=== PATIENT | female | born 1955 | race Caucasian/White ===

== ENCOUNTER 2017-09-17 09:15 | Emergency (ER) | payer OTHER ==
[2017-09-17 10:23] LABS: ADD MAN DIFF? NO
[2017-09-17 10:26] LABS: ABNORMAL IP MESSAGE 1; BASOPHILS % 0.7 % (0.0-2.0); EOSINOPHILS % 1.4 % (0.0-7.0); HEMATOCRIT 27.3 % (37.0-47.0); LYMPHOCYTES # 0.4 10^3/ul (0.8-2.9); LYMPHOCYTES % 13.6 % (15.0-51.0); MEAN CORPUSCULAR HEMOGLOBIN 26.8 pg (29.0-33.0); MEAN CORPUSCULAR HGB CONC 29.3 g/dl (32.0-37.0); MEAN CORPUSCULAR VOLUME 91.3 fl (82.0-101.0); MEAN PLATELET VOLUME 11.5 fl (7.4-10.4); MONOCYTE # 0.2 10^3/ul (0.3-0.9); MONOCYTES % 8.4 % (0.0-11.0); NEUTROPHIL # 2.2 10^3/ul (1.6-7.5); NEUTROPHILS % 75.6 % (39.0-77.0); PLATELET COUNT 74 10^3/UL (140-415); RED BLOOD COUNT 2.99 10^6/ul (4.20-5.40); RED CELL DISTRIBUTION WIDTH 16.6 % (11.5-14.5)
[2017-09-17 10:26] LABS: WHITE BLOOD COUNT 2.9 10^3/ul (4.8-10.8)
[2017-09-17 10:28] LABS: POSITIVE DIFF @See below
[2017-09-17 10:43] LABS: ALANINE AMINOTRANSFERASE 42 IU/L (13-69); ALBUMIN 3.1 g/dl (3.3-4.9); ALBUMIN/GLOBULIN RATIO 0.93; ALKALINE PHOSPHATASE 131 IU/L (42-121); ANION GAP 13 (8-16); ASPARTATE AMINO TRANSFERASE 53 IU/L (15-46); BILIRUBIN,INDIRECT 1.1 mg/dl (0-1.1); BILIRUBIN,TOTAL 1.1 mg/dl (0.2-1.3); BLOOD UREA NITROGEN 9 mg/dl (7-20); CALCIUM 8.2 mg/dl (8.4-10.2); CARBON DIOXIDE 21 mmol/L (21-31); CHLORIDE 114 mmol/L (97-110); CREATININE 0.51 mg/dl (0.44-1.00); GLUCOSE 94 mg/dl (70-220); POTASSIUM 4.1 mmol/L (3.5-5.1); SODIUM 144 mmol/L (135-144); TOTAL PROTEIN 6.4 g/dl (6.1-8.1)
[2017-09-17 10:51] LABS: B-TYPE NATRIURETIC PEPTIDE 104 PG/ML (0-125)
[2017-09-17 10:53] LABS: ADD UMIC YES; UR ASCORBIC ACID 40 mg/dL (NEGATIVE); UR BILIRUBIN (Dip) NEGATIVE (NEGATIVE); UR BLOOD (Dip) 3+ mg/dL (NEGATIVE); UR BUDDING YEAST FEW /HPF (NONE SEEN); UR CLARITY CLOUDY (CLEAR); UR COLOR AMBER (YELLOW); UR GLUCOSE (Dip) NEGATIVE (NEGATIVE); UR KETONES (Dip) TRACE mg/dL (NEGATIVE); UR LEUKOCYTE ESTERASE (Dip) 3+ Leu/ul (NEGATIVE); UR MUCUS MODERATE /HPF (NONE SEEN); UR NITRITE (Dip) NEGATIVE (NEGATIVE); UR NONSQUAMOUS EPITHELIAL CELL 2 /HPF (NONE SEEN); UR RBC > 182 /HPF (0-5); UR SPECIFIC GRAVITY (Dip) 1.021 (1.003-1.030); UR SQUAMOUS EPITHELIAL CELL FEW /HPF (FEW); UR TOTAL PROTEIN (Dip) 2+ mg/dl (NEGATIVE); UR UROBILINOGEN (Dip) NEGATIVE (NEGATIVE); UR WBC > 182 /HPF (0-5)
[2017-09-17] MEDS: FUROSEMIDE 40 MG INJ IV (12:05)
== END 2017-09-17 13:37 | disposition home or self-care (01) ==
LOC: E/R 09:15
DX: N39.0 Urinary tract infection, site not specified (principal); R31.9 Hematuria, unspecified; I10 Essential (primary) hypertension; E11.9 Type 2 diabetes mellitus without complications; C22.9 Malignant neoplasm of liver, not specified as primary or secondary; R60.0 Localized edema; Z79.84 Long term (current) use of oral hypoglycemic drugs
CPT/HCPCS: 36415; 71045; 80053; 81001; 83880; 85025; 96374; 99284-25

== ENCOUNTER 2017-10-05 10:20 | Inpatient (IN) | payer OTHER ==
[2017-10-05] MEDS: SOD CHLORIDE 0.9% 500 ML IV (11:18)
[2017-10-05 11:22] LABS: ADD MAN DIFF? NO
[2017-10-05 11:31] LABS: ABNORMAL IP MESSAGE 1; ADD UMIC YES; BASOPHILS % 0.7 % (0.0-2.0); EOSINOPHILS % 0.3 % (0.0-7.0); HEMATOCRIT 32.7 % (37.0-47.0); HEMOGLOBIN 9.9 g/dl (12.0-16.0); LYMPHOCYTES # 0.6 10^3/ul (0.8-2.9); LYMPHOCYTES % 19.3 % (15.0-51.0); MEAN CORPUSCULAR HEMOGLOBIN 26.8 pg (29.0-33.0); MEAN CORPUSCULAR HGB CONC 30.3 g/dl (32.0-37.0); MEAN CORPUSCULAR VOLUME 88.4 fl (82.0-101.0); MEAN PLATELET VOLUME 10.6 fl (7.4-10.4); MONOCYTE # 0.3 10^3/ul (0.3-0.9); MONOCYTES % 9.2 % (0.0-11.0); NEUTROPHIL # 2.2 10^3/ul (1.6-7.5); NEUTROPHILS % 70.5 % (39.0-77.0); PLATELET COUNT 91 10^3/UL (140-415); RED CELL DISTRIBUTION WIDTH 17.3 % (11.5-14.5); UR ASCORBIC ACID 40 mg/dL (NEGATIVE); UR BILIRUBIN (Dip) NEGATIVE (NEGATIVE); UR BLOOD (Dip) NEGATIVE (NEGATIVE); UR CLARITY CLEAR (CLEAR); UR COLOR YELLOW (YELLOW); UR GLUCOSE (Dip) NEGATIVE (NEGATIVE); UR KETONES (Dip) NEGATIVE (NEGATIVE); UR LEUKOCYTE ESTERASE (Dip) 1+ Leu/ul (NEGATIVE); UR NITRITE (Dip) NEGATIVE (NEGATIVE); UR NONSQUAMOUS EPITHELIAL CELL 3 /HPF (NONE SEEN); UR RBC 2 /HPF (0-5); UR SPECIFIC GRAVITY (Dip) 1.018 (1.003-1.030); UR SQUAMOUS EPITHELIAL CELL FEW /HPF (FEW); UR TOTAL PROTEIN (Dip) NEGATIVE (NEGATIVE); UR UROBILINOGEN (Dip) 1+ mg/dL (NEGATIVE); UR WBC 38 /HPF (0-5)
[2017-10-05 11:31] LABS: WHITE BLOOD COUNT 3.1 10^3/ul (4.8-10.8)
[2017-10-05 11:32] LABS: POSITIVE DIFF @See below
[2017-10-05 11:48] LABS: AMMONIA 70 umol/l (9-30)
[2017-10-05 11:51] LABS: INR 1.27; PROTIME 16.1 Sec (11.9-14.9); PT RATIO 1.3
[2017-10-05 11:52] LABS: PARTIAL THROMBOPLASTIN TIME 35.4 Sec (25.0-35.0)
[2017-10-05 11:54] LABS: ALANINE AMINOTRANSFERASE 33 IU/L (13-69); ALBUMIN 3.7 g/dl (3.3-4.9); ALBUMIN/GLOBULIN RATIO 1.02; ALKALINE PHOSPHATASE 137 IU/L (42-121); ANION GAP 12 (8-16); ASPARTATE AMINO TRANSFERASE 47 IU/L (15-46); BILIRUBIN,INDIRECT 1.1 mg/dl (0-1.1); BILIRUBIN,TOTAL 1.1 mg/dl (0.2-1.3); BLOOD UREA NITROGEN 12 mg/dl (7-20); CALCIUM 8.8 mg/dl (8.4-10.2); CARBON DIOXIDE 19 mmol/L (21-31); CHLORIDE 114 mmol/L (97-110); ETHANOL < 10.0 mg/dl; GLUCOSE 124 mg/dl (70-220); POTASSIUM 4.1 mmol/L (3.5-5.1); SODIUM 141 mmol/L (135-144); TOTAL PROTEIN 7.3 g/dl (6.1-8.1)
[2017-10-05 12:02] LABS: TROPONIN-I < 0.010 ng/ml (0.000-0.120)
[2017-10-05 12:23] LABS: AMPHETAMINE/METHAMPHETAMINE Negative (NEGATIVE); BARBITURATES Negative (NEGATIVE); BENZODIAZEPINES Negative (NEGATIVE); CANNABINOIDS Negative (NEGATIVE); COCAINE Negative (NEGATIVE); OPIATES Negative (NEGATIVE)
[2017-10-05] MEDS: CEFTRIAXONE 1 GM/50 ML (PMX) 50 ML IVPB (12:55)
[2017-10-05] MEDS: LACTULOSE 30ML CUP PO ×2 (12:55→18:00)
[2017-10-05] MEDS: DIPHENHYDRAMINE 50 MG INJ IV (13:44)
[2017-10-05] MEDS ORDERED: BISACODYL 10 MG SUPP PR (15:30)
[2017-10-05] MEDS ORDERED: NACL 0.9% 3 ML SYG IV (15:30)
[2017-10-05] MEDS ORDERED: MAGNESIUM HYDROXIDE 30ML CUP PO (15:30)
[2017-10-05] MEDS: CIPROFLOXACIN 200 MG/D5W IVPB 100 ML IVPB (17:49)
[2017-10-05] MEDS: RIFAXIMIN 550 MG TAB PO (20:09)
[2017-10-05] MEDS: GABAPENTIN 300 MG CAP PO (20:09)
[2017-10-05] MEDS: FERROUS SULFATE (EC) 325 MG TAB PO (20:09)
[2017-10-05] MEDS: morphine 2 MG INJ IV (22:44)
[2017-10-06] MEDS: LACTULOSE 30ML CUP PO ×5 (00:02→23:45)
[2017-10-06] MEDS: CIPROFLOXACIN 200 MG/D5W IVPB 100 ML IVPB ×2 (04:11→16:21)
[2017-10-06] MEDS: PANTOPRAZOLE (EC) 40 MG TAB PO (05:13)
[2017-10-06] MEDS: PANTOPRAZOLE 40 MG INJ IV (05:13)
[2017-10-06 06:20] LABS: ADD MAN DIFF? NO
[2017-10-06 06:28] LABS: WHITE BLOOD COUNT 2.7 10^3/ul (4.8-10.8)
[2017-10-06 06:28] LABS: ABNORMAL IP MESSAGE 1; BASOPHILS % 0.8 % (0.0-2.0); EOSINOPHILS % 1.1 % (0.0-7.0); HEMATOCRIT 29.5 % (37.0-47.0); HEMOGLOBIN 8.8 g/dl (12.0-16.0); LYMPHOCYTES # 0.6 10^3/ul (0.8-2.9); LYMPHOCYTES % 23.7 % (15.0-51.0); MEAN CORPUSCULAR HEMOGLOBIN 26.7 pg (29.0-33.0); MEAN CORPUSCULAR HGB CONC 29.8 g/dl (32.0-37.0); MEAN CORPUSCULAR VOLUME 89.4 fl (82.0-101.0); MEAN PLATELET VOLUME 11.2 fl (7.4-10.4); MONOCYTE # 0.4 10^3/ul (0.3-0.9); MONOCYTES % 15.4 % (0.0-11.0); NEUTROPHIL # 1.6 10^3/ul (1.6-7.5); NEUTROPHILS % 58.6 % (39.0-77.0); PLATELET COUNT 90 10^3/UL (140-415); RED CELL DISTRIBUTION WIDTH 17.5 % (11.5-14.5)
[2017-10-06 06:39] LABS: POSITIVE DIFF @See below
[2017-10-06 06:54] LABS: HEMOGLOBIN A1C 4.8 % (0-5.9)
[2017-10-06 06:57] LABS: ALANINE AMINOTRANSFERASE 33 IU/L (13-69); ALBUMIN 2.9 g/dl (3.3-4.9); ALBUMIN/GLOBULIN RATIO 0.96; ALKALINE PHOSPHATASE 98 IU/L (42-121); ANION GAP 10 (8-16); ASPARTATE AMINO TRANSFERASE 39 IU/L (15-46); BILIRUBIN,INDIRECT 1.1 mg/dl (0-1.1); BILIRUBIN,TOTAL 1.1 mg/dl (0.2-1.3); BLOOD UREA NITROGEN 11 mg/dl (7-20); CALCIUM 8.3 mg/dl (8.4-10.2); CARBON DIOXIDE 21 mmol/L (21-31); CHLORIDE 112 mmol/L (97-110); CHOLESTEROL 118 mg/dl (100-200); CREATININE 0.55 mg/dl (0.44-1.00); GLUCOSE 106 mg/dl (70-220); HDL CHOLESTEROL 39 mg/dl (35-98); LDL CHOLESTEROL,CALCULATED 69 mg/dl; MAGNESIUM 1.7 mg/dl (1.7-2.5); PHOSPHORUS 4.1 mg/dl (2.5-4.9); POTASSIUM 3.8 mmol/L (3.5-5.1); SODIUM 139 mmol/L (135-144); TOTAL PROTEIN 5.9 g/dl (6.1-8.1); TRIGLYCERIDES 51 mg/dl (0-149)
[2017-10-06 07:12] LABS: FREE THYROXINE INDEX (Calc) 2.67 ug/ml (0.65-3.89); T3 UPTAKE 37.1 % (23.5-40.5); T4 (THYROXINE) 7.2 ug/dl (5.5-11.0)
[2017-10-06] MEDS: GABAPENTIN 300 MG CAP PO ×3 (08:56→20:44)
[2017-10-06] MEDS: FUROSEMIDE 20 MG TAB PO (08:57)
[2017-10-06] MEDS: RIFAXIMIN 550 MG TAB PO ×2 (08:57→20:44)
[2017-10-06] MEDS: BENAZEPRIL 10 MG TAB PO (08:57)
[2017-10-06] MEDS: FERROUS SULFATE (EC) 325 MG TAB PO ×3 (08:57→20:44)
[2017-10-06 11:42] LABS: AMMONIA 57 umol/l (9-30)
[2017-10-06] MEDS: DOCUSATE SODIUM 100 MG CAP PO (17:17)
[2017-10-07] MEDS: CIPROFLOXACIN 200 MG/D5W IVPB 100 ML IVPB ×2 (04:08→15:27)
[2017-10-07] MEDS: PANTOPRAZOLE (EC) 40 MG TAB PO (05:49)
[2017-10-07] MEDS: LACTULOSE 30ML CUP PO ×4 (05:49→22:51)
[2017-10-07] MEDS: BENAZEPRIL 10 MG TAB PO ×2 (09:00→12:36)
[2017-10-07] MEDS: GABAPENTIN 300 MG CAP PO ×3 (09:05→20:36)
[2017-10-07] MEDS: FERROUS SULFATE (EC) 325 MG TAB PO ×3 (09:05→20:36)
[2017-10-07] MEDS: RIFAXIMIN 550 MG TAB PO ×2 (09:05→20:36)
[2017-10-07] MEDS: FUROSEMIDE 20 MG TAB PO (09:05)
[2017-10-07] MEDS: MAGNESIUM OXIDE 400 MG TAB PO ×2 (15:27→20:36)
[2017-10-07] MEDS: ZOLPIDEM 5 MG TAB PO (22:51)
[2017-10-08] MEDS: PANTOPRAZOLE (EC) 40 MG TAB PO (06:07)
[2017-10-08] MEDS: LACTULOSE 30ML CUP PO ×3 (06:07→17:06)
[2017-10-08] MEDS: CIPROFLOXACIN 250 MG TAB PO ×2 (06:07→17:06)
[2017-10-08 08:09] LABS: AMMONIA 118 umol/l (9-30)
[2017-10-08 08:11] LABS: ANION GAP 9 (8-16); BLOOD UREA NITROGEN 10 mg/dl (7-20); CALCIUM 8.2 mg/dl (8.4-10.2); CARBON DIOXIDE 23 mmol/L (21-31); CHLORIDE 108 mmol/L (97-110); GLUCOSE 150 mg/dl (70-220); POTASSIUM 3.8 mmol/L (3.5-5.1); SODIUM 136 mmol/L (135-144)
[2017-10-08] MEDS: RIFAXIMIN 550 MG TAB PO ×2 (08:31→19:59)
[2017-10-08] MEDS: GABAPENTIN 300 MG CAP PO ×3 (08:31→19:59)
[2017-10-08] MEDS: FUROSEMIDE 20 MG TAB PO (08:31)
[2017-10-08] MEDS: MAGNESIUM OXIDE 400 MG TAB PO ×2 (08:31→19:59)
[2017-10-08] MEDS: FERROUS SULFATE (EC) 325 MG TAB PO ×3 (08:31→19:59)
[2017-10-08] MEDS: BENAZEPRIL 10 MG TAB PO (08:32)
[2017-10-08] MEDS: morphine LIQ (10 MG/5 ML) CUP PO (19:59)
[2017-10-09] MEDS: LACTULOSE 30ML CUP PO ×5 (00:09→23:47)
[2017-10-09] MEDS: CIPROFLOXACIN 250 MG TAB PO ×2 (06:25→17:19)
[2017-10-09] MEDS: PANTOPRAZOLE (EC) 40 MG TAB PO (06:25)
[2017-10-09 08:04] LABS: ALANINE AMINOTRANSFERASE 38 IU/L (13-69); ALBUMIN 2.9 g/dl (3.3-4.9); ALBUMIN/GLOBULIN RATIO 0.87; ALKALINE PHOSPHATASE 110 IU/L (42-121); ANION GAP 9 (8-16); ASPARTATE AMINO TRANSFERASE 55 IU/L (15-46); CALCIUM 8.2 mg/dl (8.4-10.2); CARBON DIOXIDE 23 mmol/L (21-31); CHLORIDE 106 mmol/L (97-110); GLUCOSE 132 mg/dl (70-220); POTASSIUM 4.2 mmol/L (3.5-5.1); SODIUM 134 mmol/L (135-144); TOTAL PROTEIN 6.2 g/dl (6.1-8.1)
[2017-10-09 08:08] LABS: AMMONIA 72 umol/l (9-30)
[2017-10-09 08:09] LABS: BLOOD UREA NITROGEN 8 mg/dl (7-20)
[2017-10-09] MEDS: RIFAXIMIN 550 MG TAB PO ×2 (08:37→20:35)
[2017-10-09] MEDS: FERROUS SULFATE (EC) 325 MG TAB PO ×3 (08:37→20:35)
[2017-10-09] MEDS: FUROSEMIDE 20 MG TAB PO (08:38)
[2017-10-09] MEDS: MAGNESIUM OXIDE 400 MG TAB PO ×2 (08:38→20:35)
[2017-10-09] MEDS: GABAPENTIN 300 MG CAP PO ×3 (08:38→20:35)
[2017-10-09] MEDS: BENAZEPRIL 10 MG TAB PO (08:38)
[2017-10-09 10:12] LABS: ADD MAN DIFF? NO
[2017-10-09 10:14] LABS: WHITE BLOOD COUNT 3.3 10^3/ul (4.8-10.8)
[2017-10-09 10:14] LABS: ABNORMAL IP MESSAGE 1; BASOPHILS % 0.6 % (0.0-2.0); EOSINOPHILS # 0.1 10^3/ul (0.0-0.5); EOSINOPHILS % 2.7 % (0.0-7.0); HEMATOCRIT 30.7 % (37.0-47.0); HEMOGLOBIN 9.5 g/dl (12.0-16.0); LYMPHOCYTES # 0.9 10^3/ul (0.8-2.9); LYMPHOCYTES % 27.7 % (15.0-51.0); MEAN CORPUSCULAR HEMOGLOBIN 27.7 pg (29.0-33.0); MEAN CORPUSCULAR HGB CONC 30.9 g/dl (32.0-37.0); MEAN CORPUSCULAR VOLUME 89.5 fl (82.0-101.0); MEAN PLATELET VOLUME 11.9 fl (7.4-10.4); MONOCYTE # 0.5 10^3/ul (0.3-0.9); MONOCYTES % 14.3 % (0.0-11.0); NEUTROPHIL # 1.8 10^3/ul (1.6-7.5); NEUTROPHILS % 54.4 % (39.0-77.0); PLATELET COUNT 99 10^3/UL (140-415); RED BLOOD COUNT 3.43 10^6/ul (4.20-5.40); RED CELL DISTRIBUTION WIDTH 16.7 % (11.5-14.5)
[2017-10-09 10:22] LABS: POSITIVE DIFF @See below
[2017-10-09] MEDS: ONDANSETRON 4 MG INJ IV ×2 (12:56→18:12)
[2017-10-09] MEDS: traMADol 50 MG TAB PO ×2 (12:57→18:13)
[2017-10-10] MEDS: CIPROFLOXACIN 250 MG TAB PO ×2 (05:59→17:58)
[2017-10-10] MEDS: LACTULOSE 30ML CUP PO ×4 (05:59→23:11)
[2017-10-10] MEDS: PANTOPRAZOLE (EC) 40 MG TAB PO (05:59)
[2017-10-10] MEDS: BENAZEPRIL 10 MG TAB PO (09:00)
[2017-10-10] MEDS: MAGNESIUM OXIDE 400 MG TAB PO ×2 (09:05→20:13)
[2017-10-10] MEDS: RIFAXIMIN 550 MG TAB PO ×2 (09:06→20:13)
[2017-10-10] MEDS: GABAPENTIN 300 MG CAP PO ×3 (09:06→20:14)
[2017-10-10] MEDS: FERROUS SULFATE (EC) 325 MG TAB PO ×3 (09:06→20:13)
[2017-10-10] MEDS: FUROSEMIDE 20 MG TAB PO (09:06)
[2017-10-10 09:09] LABS: ADD MAN DIFF? NO
[2017-10-10 09:16] LABS: ABNORMAL IP MESSAGE 1; BASOPHILS % 0.7 % (0.0-2.0); EOSINOPHILS # 0.1 10^3/ul (0.0-0.5); EOSINOPHILS % 1.6 % (0.0-7.0); HEMATOCRIT 28.6 % (37.0-47.0); HEMOGLOBIN 8.8 g/dl (12.0-16.0); LYMPHOCYTES # 0.7 10^3/ul (0.8-2.9); LYMPHOCYTES % 24.1 % (15.0-51.0); MEAN CORPUSCULAR HEMOGLOBIN 27.2 pg (29.0-33.0); MEAN CORPUSCULAR HGB CONC 30.8 g/dl (32.0-37.0); MEAN CORPUSCULAR VOLUME 88.5 fl (82.0-101.0); MEAN PLATELET VOLUME 11.6 fl (7.4-10.4); MONOCYTE # 0.5 10^3/ul (0.3-0.9); NEUTROPHIL # 1.8 10^3/ul (1.6-7.5); NEUTROPHILS % 57.9 % (39.0-77.0); RED BLOOD COUNT 3.23 10^6/ul (4.20-5.40)
[2017-10-10 09:16] LABS: WHITE BLOOD COUNT 3.1 10^3/ul (4.8-10.8)
[2017-10-10 09:18] LABS: POSITIVE DIFF @See below
[2017-10-10 09:19] LABS: PLATELET COUNT 90 10^3/UL (140-415)
[2017-10-10 09:28] LABS: AMMONIA 107 umol/l (9-30)
[2017-10-10 09:40] LABS: ALANINE AMINOTRANSFERASE 43 IU/L (13-69); ALBUMIN 2.7 g/dl (3.3-4.9); ALBUMIN/GLOBULIN RATIO 0.87; ALKALINE PHOSPHATASE 114 IU/L (42-121); ANION GAP 9 (8-16); ASPARTATE AMINO TRANSFERASE 61 IU/L (15-46); BILIRUBIN,INDIRECT 0.8 mg/dl (0-1.1); BILIRUBIN,TOTAL 0.8 mg/dl (0.2-1.3); BLOOD UREA NITROGEN 11 mg/dl (7-20); CALCIUM 8.1 mg/dl (8.4-10.2); CARBON DIOXIDE 24 mmol/L (21-31); CHLORIDE 106 mmol/L (97-110); CREATININE 0.53 mg/dl (0.44-1.00); GLUCOSE 137 mg/dl (70-220); SODIUM 135 mmol/L (135-144); TOTAL PROTEIN 5.8 g/dl (6.1-8.1)
[2017-10-11] MEDS: PANTOPRAZOLE (EC) 40 MG TAB PO (05:30)
[2017-10-11] MEDS: CIPROFLOXACIN 250 MG TAB PO (05:30)
[2017-10-11] MEDS: LACTULOSE 30ML CUP PO ×4 (05:30→23:41)
[2017-10-11 06:40] LABS: ADD MAN DIFF? NO
[2017-10-11 06:43] LABS: ABNORMAL IP MESSAGE 1; BASOPHILS % 0.7 % (0.0-2.0); EOSINOPHILS # 0.1 10^3/ul (0.0-0.5); EOSINOPHILS % 1.8 % (0.0-7.0); HEMATOCRIT 27.9 % (37.0-47.0); HEMOGLOBIN 8.4 g/dl (12.0-16.0); LYMPHOCYTES # 0.7 10^3/ul (0.8-2.9); LYMPHOCYTES % 27.3 % (15.0-51.0); MEAN CORPUSCULAR HGB CONC 30.1 g/dl (32.0-37.0); MEAN CORPUSCULAR VOLUME 89.7 fl (82.0-101.0); MEAN PLATELET VOLUME 11.5 fl (7.4-10.4); MONOCYTE # 0.4 10^3/ul (0.3-0.9); MONOCYTES % 15.9 % (0.0-11.0); NEUTROPHIL # 1.5 10^3/ul (1.6-7.5); NEUTROPHILS % 53.9 % (39.0-77.0); PLATELET COUNT 80 10^3/UL (140-415); RED BLOOD COUNT 3.11 10^6/ul (4.20-5.40); RED CELL DISTRIBUTION WIDTH 17.5 % (11.5-14.5)
[2017-10-11 06:43] LABS: WHITE BLOOD COUNT 2.7 10^3/ul (4.8-10.8)
[2017-10-11 06:44] LABS: POSITIVE DIFF @See below
[2017-10-11 07:11] LABS: AMMONIA 70 umol/l (9-30)
[2017-10-11 07:17] LABS: ALANINE AMINOTRANSFERASE 42 IU/L (13-69); ALBUMIN 2.7 g/dl (3.3-4.9); ALKALINE PHOSPHATASE 110 IU/L (42-121); ASPARTATE AMINO TRANSFERASE 69 IU/L (15-46); BILIRUBIN,INDIRECT 0.9 mg/dl (0-1.1); BILIRUBIN,TOTAL 0.9 mg/dl (0.2-1.3); BLOOD UREA NITROGEN 8 mg/dl (7-20); CALCIUM 8.1 mg/dl (8.4-10.2); CARBON DIOXIDE 26 mmol/L (21-31); CHLORIDE 106 mmol/L (97-110); CREATININE 0.54 mg/dl (0.44-1.00); GLUCOSE 116 mg/dl (70-220); SODIUM 136 mmol/L (135-144); TOTAL PROTEIN 5.7 g/dl (6.1-8.1)
[2017-10-11 07:20] LABS: ANION GAP 8 (8-16)
[2017-10-11] MEDS: GABAPENTIN 300 MG CAP PO ×3 (08:37→20:58)
[2017-10-11] MEDS: FUROSEMIDE 20 MG TAB PO (08:38)
[2017-10-11] MEDS: BENAZEPRIL 10 MG TAB PO (08:38)
[2017-10-11] MEDS: RIFAXIMIN 550 MG TAB PO ×2 (08:38→20:58)
[2017-10-11] MEDS: FERROUS SULFATE (EC) 325 MG TAB PO ×3 (08:38→20:59)
[2017-10-11] MEDS: MAGNESIUM OXIDE 400 MG TAB PO ×2 (08:38→20:59)
[2017-10-12] MEDS: SOD CHLORIDE 0.9% 250 ML IV (02:10)
[2017-10-12] MEDS: PANTOPRAZOLE (EC) 40 MG TAB PO (05:29)
[2017-10-12] MEDS: LACTULOSE 30ML CUP PO ×3 (05:29→18:28)
[2017-10-12 07:37] LABS: ABNORMAL IP MESSAGE 1; HEMOGLOBIN 8.7 g/dl (12.0-16.0); MEAN CORPUSCULAR HEMOGLOBIN 28.1 pg (29.0-33.0); MEAN CORPUSCULAR HGB CONC 31.1 g/dl (32.0-37.0); MEAN CORPUSCULAR VOLUME 90.3 fl (82.0-101.0); MEAN PLATELET VOLUME 10.7 fl (7.4-10.4); PLATELET COUNT 69 10^3/UL (140-415); RED CELL DISTRIBUTION WIDTH 17.9 % (11.5-14.5)
[2017-10-12 07:37] LABS: WHITE BLOOD COUNT 2.4 10^3/ul (4.8-10.8)
[2017-10-12 07:45] LABS: POSITIVE DIFF @See below
[2017-10-12 07:46] LABS: ADD MAN DIFF? YES
[2017-10-12 07:53] LABS: AMMONIA 61 umol/l (9-30)
[2017-10-12 07:56] LABS: ALANINE AMINOTRANSFERASE 53 IU/L (13-69); ALBUMIN 2.7 g/dl (3.3-4.9); ALBUMIN/GLOBULIN RATIO 0.96; ALKALINE PHOSPHATASE 119 IU/L (42-121); ANION GAP 9 (8-16); ASPARTATE AMINO TRANSFERASE 75 IU/L (15-46); BILIRUBIN,INDIRECT 0.6 mg/dl (0-1.1); BILIRUBIN,TOTAL 0.6 mg/dl (0.2-1.3); BLOOD UREA NITROGEN 9 mg/dl (7-20); CALCIUM 8.3 mg/dl (8.4-10.2); CARBON DIOXIDE 27 mmol/L (21-31); CHLORIDE 106 mmol/L (97-110); GLUCOSE 131 mg/dl (70-220); POTASSIUM 3.7 mmol/L (3.5-5.1); SODIUM 138 mmol/L (135-144); TOTAL PROTEIN 5.5 g/dl (6.1-8.1)
[2017-10-12] MEDS: RIFAXIMIN 550 MG TAB PO (08:08)
[2017-10-12] MEDS: FUROSEMIDE 20 MG TAB PO (08:09)
[2017-10-12] MEDS: MAGNESIUM OXIDE 400 MG TAB PO (08:09)
[2017-10-12] MEDS: FERROUS SULFATE (EC) 325 MG TAB PO ×2 (08:09→12:41)
[2017-10-12] MEDS: GABAPENTIN 300 MG CAP PO ×2 (08:09→12:41)
[2017-10-12] MEDS: BENAZEPRIL 10 MG TAB PO (08:10)
[2017-10-12 08:55] LABS: PHOSPHORUS 3.4 mg/dl (2.5-4.9)
[2017-10-12 09:50] LABS: ANISOCYTOSIS 1+ (0-0); BAND NEUTROPHILS % (M) 3 % (0-4); BASOPHILS % (M) 2 % (0-2); EOSINOPHILS % (M) 3 % (0-7); ERYTHROBLAST% (NRBC) (M) 1 % (0-0); GIANT THROMBO% (M) 5 % (0-0); LYMPHOCYTES #M 0.5 10^3/ul (0.8-2.9); LYMPHOCYTES % (M) 22 % (15-51); MONOCYTE #M 0.2 10^3/ul (0.3-0.9); MONOCYTES % (M) 9 % (0-11); PLATELET ESTIMATE INCREASED; POIKILOCYTOSIS 1+ (0-0); SEG NEUT #M 1.5 10^3/ul (1.6-7.5); SEGMENTED NEUTROPHILS (M) % 61 % (39-77); SMUDGE%M 9 % (0-0)
== END 2017-10-12 19:05 | disposition home or self-care (01) | DRG 435 ==
LOC: 5EC 10-10 13:33 → E/R 10:20 → 5EC 10-10 13:34
DX: C22.0 Liver cell carcinoma (principal); G92 Toxic encephalopathy; N39.0 Urinary tract infection, site not specified; D61.818 Other pancytopenia; E72.20 Disorder of urea cycle metabolism, unspecified; I10 Essential (primary) hypertension; E11.9 Type 2 diabetes mellitus without complications; B19.20 Unspecified viral hepatitis C without hepatic coma
CPT/HCPCS: 36415; 70450; 71045; 80048; 80053; 80061; 80307; 81001; 82140; 83036; 83605; 83735; 84100; 84436; 84443; 84479; 84484; 85025; 85610; 85730; 87040; 87086; 93005; 96361; 96365; 96375; 97116; 97162; 97530; 99291-25

== ENCOUNTER → 2018-04-21 | Outpatient (CLI) | payer OTHER ==
[2018-04-21 13:28] LABS: AADO2 Arterial 2.5 mmHg (7.0-24.0); Allen Test ACCEPTAB; Arterial Base Excess 0.7 mmol/L (-3.0-3); Arterial Blood Gas Oxygen Sat 98.1 mmHG (95.0-98.0); Arterial Fraction of Oxyhgb 96.9 % (93.0-99.0); Arterial HCO3 23.4 mmol/L (22.0-26.0); Arterial MetHb 0.2 % (0.0-1.5); Arterial pCO2 31.3 mmhg (35-45); MODE ROOM AIR; Site Right Radial
== END | disposition home or self-care (01) ==
LOC: PUL 12:50
DX: K74.60 Unspecified cirrhosis of liver (principal); D01.5 Carcinoma in situ of liver, gallbladder and bile ducts; K75.81 Nonalcoholic steatohepatitis (NASH)
CPT/HCPCS: 36600; 82803; 94010; 94726; 94729